=== PATIENT | male | born 1975 | race Two or more races ===

== ENCOUNTER 2020-11-01 20:01 | Inpatient (IN) | payer OTHER ==
[~2020-11-01] VITALS: Ht 167.6 cm
[2020-11-01] MEDS ORDERED: CLONOPIN (20:14)
[2020-11-03] MEDS ORDERED: CLONAZEPAM1 MG (09:03)
== END 2020-11-11 11:13 | disposition designated cancer center or children's hospital (05) | DRG 292 ==
LOC: ER 20:01 → MEDJ 11-02 11:57
PROVIDERS: ADMIT Internal Medicine; ATTEND Internal Medicine
PROC: 4A12X4Z Monitoring of Cardiac Electrical Activity, External Approach (ICD-10-PCS; principal; 2020-11-02)
PROC: 4A033R1 Measurement of Arterial Saturation, Peripheral, Percutaneous Approach (ICD-10-PCS; 2020-11-02)
PROC: B24BZZZ Ultrasonography of Heart with Aorta (ICD-10-PCS; 2020-11-02)
PROC: 3E0F7SF Introduction of Other Gas into Respiratory Tract, Via Natural or Artificial Opening (ICD-10-PCS; 2020-11-02)
PROC: BW25ZZZ Computerized Tomography (CT Scan) of Chest, Abdomen and Pelvis (ICD-10-PCS; 2020-11-02)
PROC: BW40ZZZ Ultrasonography of Abdomen (ICD-10-PCS; 2020-11-05)
DX: I50.23 Acute on chronic systolic (congestive) heart failure (principal); J44.1 Chronic obstructive pulmonary disease with (acute) exacerbation; J90 Pleural effusion, not elsewhere classified; I42.8 Other cardiomyopathies; J81.1 Chronic pulmonary edema; I27.20 Pulmonary hypertension, unspecified; Z20.822 Contact with and (suspected) exposure to COVID-19; F14.11 Cocaine abuse, in remission; Z72.89 Other problems related to lifestyle